=== PATIENT | male | born 2000 | race Caucasian/White ===

== ENCOUNTER 2021-01-03 18:21 | Emergency (ER) | payer SELFPAY ==
[2021-01-03] MEDS ORDERED: Lidocaine 2% 20 ML MDV INFILT ONE (18:22)
[2021-01-03] MEDS ORDERED: Diphtheria,Pertussis(Acell),Tetanus Vaccine 0.5 ML Syringe IM ONE (18:58)
--- NOTE | 2021-01-03 19:09 | EDM.PDOC ---
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 He had immediate pain. It appears that his fingernail has been completely avulsed but is still attached superiorly. He still has sensation and movement in the distal aspect of his thumb. Has no other specific concerns or complaints at this time. Left Finger-Thumb Pain Score (Numeric/FACES): 10 - Related Data Allergies Allergy/AdvReac Type Severity Reaction Status Date / Time amoxicillin [From Augmentin] Allergy Hives Verified 01/03/21 20:16 clavulanic acid Allergy Hives Verified 01/03/21 20:16 [From Augmentin] Home Meds: Home Meds Sertraline [Zoloft] 50 mg PO BEDTIME 01/03/21 [History] Review of Systems - Review of Systems Review Of Systems: See Below Constitutional: Reports: No Symptoms Eyes: Reports: No Symptoms Ears: Reports: No Symptoms Nose: Reports: No Symptoms Mouth/Throat: Reports: No Symptoms Respiratory: Reports: No Symptoms Cardiovascular: Reports: No Symptoms GI/Abdominal: Reports: No Symptoms Genitourinary: Reports: No Symptoms Musculoskeletal: Reports: Hand Pain Skin: Reports: Change in Hair/Nails Neurological: Reports: No Symptoms ED EXAM, GENERAL - Physical Exam Exam: See Below Exam Limited By: No Limitations General Appearance: Alert, WD/WN, No Apparent Distress, Anxious Eye Exam: Bilateral Eye: EOMI Nose: Normal Inspection Head: Atraumatic, Normocephalic Respiratory/Chest: No Respiratory Distress Cardiovascular: Normal Peripheral Pulses Peripheral Pulses: 2+: Radial (L), Radial (R) Back Exam: Normal Inspection Extremities: Other (Patient has black spray paint on his hands bilaterally. Left thumb has an avulsion injury to the thumbnail) Neurological: Alert, Oriented, CN II-XII Intact Psychiatric: Normal Affect, Normal Mood, Anxious Skin Exam: Warm, Dry, Wound/Incision Course - Vital Signs Text/Narrative:: Review of x-ray shows a nondisplaced fracture of the distal phalanx. Patient was given 4 mg Zofran ODT and 10 mg / 325 mg Stephens. Patient received approximately 2.5 mL 2% lidocaine to the base of the left thumb bilaterally which numbed his thumb well. His thumb was thoroughly cleaned with soap and water for approximately 10 minutes. After cleaning his thumb it revealed an avulsion of the thumbnail just proximal to the pannicular bed. Patient was given Tdap booster. I was able to consult with [facility] and spoke with orthopedic surgery and emergency room physician. Patient will go by private vehicle to the emergency department at [facility] for further evaluation and possible treatment due to avulsion through the nailbed with crush injury of the distal phalanx. - Orders/Labs/Meds Orders: Active Orders 24 hr Category Date Time Status Vaccines to be Administered [RC] PER UNIT ROUTINE Care 01/03/21 18:58 Active Fingers Thumb Lt FA [CR] Stat Exams 01/03/21 18:58 Taken Meds: Medications Discontinued Medications Generic Name Dose Route Start Last Admin Trade Name Freq PRN Reason Stop Dose Admin Hydrocodone Bitart/Acetaminophen 1 tab 01/03/21 20:03 01/03/21 20:05 Acetaminophen/Hydrocodone 325-10 Mg Tab PO 01/03/21 20:04 1 tab ONETIME ONE Administration Diphtheria/Tetanus/Acell Pertussis 0.5 ml 01/03/21 18:58 01/03/21 19:21 Diphtheria,Pertussis(Acell),Tetanus Vaccine 0.5 Ml Syringe IM 01/03/21 18:59 0.5 ml .ONCE ONE Administration Ondansetron HCl 4 mg 01/03/21 20:02 01/03/21 20:06 Ondansetron 4 Mg Tab.Dis PO 01/03/21 20:03 4 mg ONETIME ONE Administration Departure - Departure Time of Disposition: 20:56 Disposition: DC/Tfer to Other 70 Condition: Good Clinical Impression: Fracture of distal phalanx of finger of left hand - Discharge Information *PRESCRIPTION DRUG MONITORING PROGRAM REVIEWED*: Not Applicable *COPY OF PRESCRIPTION DRUG MONITORING REPORT IN PATIENT GRISELDA: Not Applicable Instructions: Thumb Fracture, Nail Bed Injury, [id number] - My Orders Last 24 Hours: My Active Orders 01/03/21 18:58 Vaccines to be Administered [RC] PER UNIT ROUTINE Fingers Thumb Lt FA [CR] Stat - Assessment/Plan Last 24 Hours: My Active Orders 01/03/21 18:58 Vaccines to be Administered [RC] PER UNIT ROUTINE Fingers Thumb Lt FA [CR] Stat
[2021-01-03] MEDS ORDERED: Ondansetron 4 MG Tab.DIS PO ONE (20:02)
[2021-01-03] MEDS ORDERED: Acetaminophen/HYDROcodone 325-10 MG Tab PO ONE (20:03)
== END 2021-01-03 21:13 | disposition other institution (70) ==
LOC: FB.ED 18:21
DX: S62.525A Nondisplaced fracture of distal phalanx of left thumb, initial encounter for closed fracture (principal); Z23 Encounter for immunization; Z88.0 Allergy status to penicillin; Z88.1 Allergy status to other antibiotic agents; W23.0XXA Caught, crushed, jammed, or pinched between moving objects, initial encounter; Y92.219 Unspecified school as the place of occurrence of the external cause; Y99.0 Civilian activity done for income or pay
CPT/HCPCS: 73140; 90471; 90715; 99284; A9270

== ENCOUNTER 2024-07-02 | Emergency (ER) | payer BC ==
[2024-07-02] MEDS: Alum Hydroxide/Mag Hydroxide 15 ML, Lidocaine 2% 15 ML PO ONE (00:19)
[2024-07-02 00:30] LABS: BASOPHILS PERCENT AUTO 0.5 % (0.3-3.8); EOSINOPHILS ABSOLUTE AUTO 0.2 x10-3/uL (0.0-0.6); EOSINOPHILS PERCENT AUTO 2.7 % (0.1-6.8); HEMATOCRIT 43.4 % (38.3-50.1); HEMOGLOBIN 15.3 g/dL (12.9-17.7); LYMPHOCYTES ABSOLUTE AUTO 4.1 x10-3/uL (0.5-4.5); LYMPHOCYTES PERCENT AUTO 52.8 % (15.8-45.3); MEAN CORPUSCULAR HEMOGLOBIN 30.5 pg (27.0-33.3); MEAN CORPUSCULAR HGB CONC 35.2 g/dL (28.7-35.3); MEAN CORPUSCULAR VOLUME 86.8 fL (80.8-98.7); MEAN PLATELET VOLUME 7.1 fL (6.7-11.0); MONOCYTES ABSOLUTE AUTO 0.6 x10-3/uL (0.0-1.2); MONOCYTES PERCENT AUTO 7.2 % (5.5-15.2); NEUTROPHILS ABSOLUTE AUTO 2.9 x10-3/uL (1.7-6.9); NEUTROPHILS PERCENT AUTO 36.8 % (40.3-71.8); PLATELET COUNT,PLT 314 x10(3)uL (117-477); RED CELL DISTRIBUTION WIDTH 12.7 % (12.4-15.0); WHITE BLOOD CELL COUNT,WBC 7.8 x10-3/uL (3.2-10.1)
[2024-07-02 00:37] LABS: BLOOD UREA NITROGEN,BUN 16 mg/dL (7-18); CALCIUM 9.1 mg/dL (8.6-10.2); CARBON DIOXIDE,CO2 25 mmol/L (21-32); CHLORIDE,CL 103 mmol/L (100-110); ESTIMATED GFR 108 mL/min (>60); GLUCOSE RANDOM 106 mg/dL (80-116); POTASSIUM,K 3.3 mmol/L (3.5-5.3); SODIUM,NA 139 mmol/L (135-145)
[2024-07-02 00:43] LABS: ALANINE AMINOTRANSFERASE,ALT 74 U/L (12-36); ALBUMIN 4.1 g/dL (3.5-5.2); ALKALINE PHOSPHATASE 75 IU/L (56-112); ASPARTATE AMNIOTRANSFERASE,AST 29 IU/L (5-25); BILIRUBIN TOTAL 0.5 mg/dL (0.1-1.3); PROTEIN TOTAL,TP 8.3 g/dL (6.0-8.0)
== END 2024-07-02 01:10 | disposition home or self-care (01) ==
LOC: FB.ED
DX: R07.89 Other chest pain (principal); J45.909 Unspecified asthma, uncomplicated; Z88.0 Allergy status to penicillin; Z79.899 Other long term (current) drug therapy
CPT/HCPCS: 36415; 80053; 84484; 85025; 93005; 99285; A9270; 93010; 99283